=== PATIENT | male | born 1945 | race Two or more races ===

== ENCOUNTER 2023-07-19 09:19 | Inpatient (IN) | payer OTHER ==
[~2023-07-19] VITALS: Ht 180.3 cm; Wt 98.9 kg
== END 2023-07-30 12:41 | DRG 470 ==
LOC: O/R 07-27 05:50 → SURH 07-27 09:15
PROVIDERS: ADMIT Orthopaedic Surgery; ATTEND Orthopaedic Surgery
PROC: 0SRC0JZ Replacement of Right Knee Joint with Synthetic Substitute, Open Approach (ICD-10-PCS; principal; 2023-07-27 10:15)
DX: M17.11 Unilateral primary osteoarthritis, right knee (principal); D62 Acute posthemorrhagic anemia; M85.661 Other cyst of bone, right lower leg; Z96.651 Presence of right artificial knee joint

== ENCOUNTER 2023-07-26 13:19 | Outpatient (CLI) | payer OTHER | END 2023-07-26 13:24 | disposition home or self-care (01) | LOC: RAD 13:19 | PROVIDERS: ATTEND Orthopaedic Surgery | DX: M25.561 Pain in right knee (principal); M25.562 Pain in left knee ==

== ENCOUNTER 2023-10-20 17:07 | Outpatient (CLI) | payer OTHER | END 2023-10-20 17:11 | disposition home or self-care (01) | LOC: RAD 17:07 | PROVIDERS: ATTEND Orthopaedic Surgery | DX: M25.561 Pain in right knee (principal); M25.562 Pain in left knee ==